=== PATIENT | female | born 1985 | race Caucasian/White ===

== ENCOUNTER 2016-12-06 20:31 | Emergency (ER) | payer OTHER ==
[~2016-12-06] VITALS: Ht 167.6 cm; Wt 62.2 kg
[~2016-12-06 20:31] MED LIST: CIPRO500 MG PO; METHADONE HCL40 MG PO; METHADONE5 MG PO; NOHOMEMEDS; VYVANSE10 MG PO; VYVANSE50 MG PO
[2016-12-06] MEDS ORDERED: CLINDAMYCIN HC300 MG PO (22:10)
[2016-12-06 22:19] VITALS: BP 124/74
== END 2016-12-06 22:19 | disposition home or self-care (01) ==
LOC: EME 20:31 → EXP 20:31
DX: F11.10 Opioid abuse, uncomplicated (principal); S31.134A Puncture wound of abdominal wall without foreign body, left lower quadrant without penetration into peritoneal cavity, initial encounter; X58.XXXA Exposure to other specified factors, initial encounter; R05 Cough; F33.2 Major depressive disorder, recurrent severe without psychotic features; F41.9 Anxiety disorder, unspecified; F17.200 Nicotine dependence, unspecified, uncomplicated
CPT/HCPCS: 72170; 90839; 99281; 99283

== ENCOUNTER 2017-01-09 07:24 | Emergency (ER) | payer OTHER ==
[~2017-01-09] VITALS: Ht 167.6 cm; Wt 62.0 kg
[~2017-01-09 07:24] MED LIST changes: +CLINDAMYCIN HC300 MG PO
[2017-01-09] MEDS ORDERED: METHADONE10 MG PO (07:46)
[2017-01-09 08:43] LABS: MCH 30.1 PG (29.0-34.0); MCHC 33.3 G/DL (30.0-36.0); MCV 90.2 FL (83-99); MEAN PLAT.VOLUME 10.4 uM^3 (9.5-12.4); PLATELET COUNT 223 K/uL (156-360); RBC DIS.WIDTH-CV 12.7 % (11.8-14.6); RBC DIS.WIDTH-SD 40.9 % (39-53); RED BLOOD COUNT 3.66 M/uL (3.80-5.20); WHITE BLOOD COUNT 11.3 K/uL (4.1-10.2)
[2017-01-09 08:44] LABS: EOSINOPHIL (%) 0.7 % (0-5); EOSINOPHIL COUNT 0.1 K/uL (0-0.3); IMMATURE GRANULOCYTE (%) 0.2 % (0.0-0.7); IMMATURE GRANULOCYTE COUNT 0.2 K/uL; LYMPHOCYTE COUNT 1.6 K/uL (1.0-2.8); MONOCYTE (%) 12.4 % (3-12); MONOCYTE COUNT 1.4 K/uL (0-0.8); NEUTROPHIL (%) 72.7 % (45-76); NEUTROPHIL COUNT 8.2 K/uL (1.8-6.4)
[2017-01-09 08:50] LABS: CHLORIDE 105 mEq/L (99-109); POTASSIUM 3.9 mEq/L (3.7-5.4); SODIUM 140 mEq/L (136-147)
[2017-01-09 08:52] LABS: GLUCOSE 116 mg/dL (70-99)
[2017-01-09 08:53] LABS: ANION GAP 10 MEQ/L (2-14)
[2017-01-09 08:56] LABS: GFR ESTIMATE (CALCULATED) > 59 mL/min/
[2017-01-09 08:57] LABS: UREA NITROGEN (BUN) 15 mg/dL (9-23)
[2017-01-09 09:19] LABS: QUANTITATIVE HCG < 4.0 MIU/ML
[2017-01-09] MEDS ORDERED: DAILY VITE1 EAC1 PO (13:29)
[2017-01-09] MEDS ORDERED: MOTRIN800 MG PO (13:29)
[2017-01-09 15:20] LABS: INTER. NORMALIZED RATIO 0.9; PROTHROMBIN TIME 9.6 (9.2-11.2); PTT 32.2 (25-32)
[2017-01-09 16:34] VITALS: BP 99/60
== END 2017-01-09 16:12 | disposition short-term general hospital (02) ==
LOC: EME 07:24
PROVIDERS: Emergency Medicine; Physician Assistant Medical
DX: I82.422 Acute embolism and thrombosis of left iliac vein (principal); I82.412 Acute embolism and thrombosis of left femoral vein; L03.116 Cellulitis of left lower limb; M79.89 Other specified soft tissue disorders; F19.10 Other psychoactive substance abuse, uncomplicated; B19.20 Unspecified viral hepatitis C without hepatic coma
CPT/HCPCS: 72193; 73701; 80048; 84702; 85025; 85610; 85730; 87040; 87077; 87186; 87801; 93970; 99281; 99285; J3370; J7030

== ENCOUNTER 2017-04-05 02:18 | Emergency (ER) | payer OTHER ==
[~2017-04-05] VITALS: Ht 167.6 cm; Wt 60.5 kg
[~2017-04-05 02:18] MED LIST changes: +DAILY VITE1 EAC1 PO; +METHADONE10 MG PO; +MOTRIN800 MG PO
[2017-04-05] MEDS ORDERED: XARELTO20 MG PO (03:22)
[2017-04-05 03:31] VITALS: BP 123/85
== END 2017-04-05 03:46 | disposition home or self-care (01) ==
LOC: EME 02:18
DX: I82.402 Acute embolism and thrombosis of unspecified deep veins of left lower extremity (principal); F11.20 Opioid dependence, uncomplicated; Z76.0 Encounter for issue of repeat prescription; Z91.040 Latex allergy status; Z88.8 Allergy status to other drugs, medicaments and biological substances
CPT/HCPCS: 99281; 99284

== ENCOUNTER 2017-12-07 10:06 | Emergency (ER) | payer OTHER ==
[~2017-12-07] VITALS: Ht 167.6 cm; Wt 71.2 kg
[~2017-12-07 10:06] MED LIST changes: +XARELTO20 MG PO
[2017-12-07 15:22] LABS: HEMATOCRIT 38.3 % (36.0-46.0); HEMOGLOBIN 12.7 G/DL (11.9-15.5); MCH 29.7 PG (29.0-34.0); MCHC 33.2 G/DL (30.0-36.0); MCV 89.5 FL (83-99); PLATELET COUNT 287 K/uL (156-360); RBC DIS.WIDTH-CV 13.6 % (11.8-14.6); RBC DIS.WIDTH-SD 44.3 % (39-53); RED BLOOD COUNT 4.28 M/uL (3.80-5.20); WHITE BLOOD COUNT 13.4 K/uL (4.1-10.2)
[2017-12-07 15:33] LABS: CHLORIDE 104 mEq/L (99-109); POTASSIUM 4.4 mEq/L (3.7-5.4); SODIUM 139 mEq/L (136-147)
[2017-12-07 15:34] LABS: GLUCOSE 79 mg/dL (70-99)
[2017-12-07 15:38] LABS: CREATININE 0.8 mg/dL (0.6-1.3); GFR ESTIMATE (CALCULATED) > 59 mL/min/
[2017-12-07 15:39] LABS: UREA NITROGEN (BUN) 10 mg/dL (9-23)
[2017-12-07] MEDS ORDERED: MOTRIN600 MG PO (16:07)
[2017-12-07] MEDS ORDERED: BACTRIM,SEPT1 TABLET PO (16:07)
[2017-12-07 16:35] VITALS: BP 136/74
== END 2017-12-07 16:36 | disposition left against medical advice (07) ==
LOC: EME 10:06
PROVIDERS: Physician Assistant
PROC: 0H9JXZZ Drainage of Left Upper Leg Skin, External Approach (ICD-10-PCS; principal; 2017-12-07)
DX: L02.416 Cutaneous abscess of left lower limb (principal); F14.10 Cocaine abuse, uncomplicated; F11.10 Opioid abuse, uncomplicated; Z86.718 Personal history of other venous thrombosis and embolism; Z79.01 Long term (current) use of anticoagulants; F17.200 Nicotine dependence, unspecified, uncomplicated
CPT/HCPCS: 73552; 80048; 83605; 85027; 87040; 87070; 87075; 87077; 87147; 87186; 87205; 93971; 99281; 99283; J1885

== ENCOUNTER 2018-03-16 19:42 | Emergency (ER) | payer OTHER ==
[~2018-03-16] VITALS: Ht 167.6 cm; Wt 71.7 kg
[~2018-03-16 19:42] MED LIST changes: +BACTRIM,SEPT1 TABLET PO; -METHADONE10 MG PO; +METHADONE10 MG/1 M1 PO; +MOTRIN600 MG PO
[2018-03-16 20:28] LABS: HEMATOCRIT 38.2 % (36.0-46.0); HEMOGLOBIN 12.9 G/DL (11.9-15.5); MCH 30.6 PG (29.0-34.0); MCHC 33.8 G/DL (30.0-36.0); MCV 90.7 FL (83-99); PLATELET COUNT 188 K/uL (156-360); RBC DIS.WIDTH-CV 13.2 % (11.8-14.6); RBC DIS.WIDTH-SD 44.3 % (39-53); RED BLOOD COUNT 4.21 M/uL (3.80-5.20); WHITE BLOOD COUNT 13.7 K/uL (4.1-10.2)
[2018-03-16 20:32] LABS: INTER. NORMALIZED RATIO 1.9
[2018-03-16 20:34] LABS: PTT 47.1 SEC (25-37)
[2018-03-16 20:35] LABS: ALBUMIN 4.3 g/dL (3.2-4.8); CHLORIDE 103 mEq/L (99-109); POTASSIUM 4.5 mEq/L (3.7-5.4); SODIUM 138 mEq/L (136-147)
[2018-03-16 20:38] LABS: GLUCOSE 109 mg/dL (70-99); TOTAL PROTEIN 8.3 g/dL (6.4-8.3)
[2018-03-16 20:41] LABS: ALKALINE PHOSPHATASE 102 IU/L (3-129); CREATININE 0.8 mg/dL (0.6-1.3); GFR ESTIMATE (CALCULATED) > 59 mL/min/
[2018-03-16 20:42] LABS: UREA NITROGEN (BUN) 10 mg/dL (9-23)
[2018-03-16 20:43] LABS: AST (GOT) 22 IU/L (2-34)
[2018-03-16 20:44] LABS: ALT (GPT) 16 IU/L (3-49)
[2018-03-16 20:53] LABS: QUANTITATIVE HCG < 4.0 MIU/ML
[2018-03-16 23:16] LABS: TROP-I INTERPRETATION NEGATIVE; TROPONIN-I < 0.01 ng/mL (0.0-0.30)
[2018-03-16] MEDS ORDERED: KEFLEX500 MG PO (23:30)
[2018-03-17 00:09] VITALS: BP 117/72
[2018-03-18] MEDS ORDERED: ADULT ASPIRIN81 MG PO (19:56)
== END 2018-03-17 00:21 | disposition home or self-care (01) ==
LOC: EME 19:42
DX: A49.02 Methicillin resistant Staphylococcus aureus infection, unspecified site (principal); R78.81 Bacteremia; L03.116 Cellulitis of left lower limb; F11.99 Opioid use, unspecified with unspecified opioid-induced disorder; G43.909 Migraine, unspecified, not intractable, without status migrainosus; R00.0 Tachycardia, unspecified; Z86.718 Personal history of other venous thrombosis and embolism; F17.200 Nicotine dependence, unspecified, uncomplicated
CPT/HCPCS: 71045; 80053; 83605; 84484; 84702; 85027; 85610; 85730; 87040; 87077; 87186; 87801; 93005; 93971; 99281; 99285; J0696

== ENCOUNTER 2018-03-17 18:31 | Emergency (ER) | payer OTHER ==
[~2018-03-17] VITALS: Ht 167.6 cm; Wt 72.6 kg
[~2018-03-17 18:31] MED LIST changes: +KEFLEX500 MG PO
[2018-03-17 18:42] VITALS: BP 95/66
[2018-03-17 20:20] LABS: BASOPHIL (%) 0.2 % (0-1); EOSINOPHIL (%) 0.3 % (0-5); EOSINOPHIL COUNT 0.1 K/uL (0-0.3); IMMATURE GRANULOCYTE (%) 0.3 % (0.0-0.7); LYMPHOCYTE (%) 7.4 % (15-42); LYMPHOCYTE COUNT 1.3 K/uL (1.0-2.8); MCH 30.5 PG (29.0-34.0); MCHC 34.1 G/DL (30.0-36.0); MCV 89.6 FL (83-99); MONOCYTE (%) 9.4 % (3-12); MONOCYTE COUNT 1.6 K/uL (0-0.8); NEUTROPHIL (%) 82.4 % (45-76); NEUTROPHIL COUNT 14.2 K/uL (1.8-6.4); RBC DIS.WIDTH-CV 13.1 % (11.8-14.6); RBC DIS.WIDTH-SD 43.2 % (39-53); RED BLOOD COUNT 3.57 M/uL (3.80-5.20); WHITE BLOOD COUNT 17.3 K/uL (4.1-10.2)
[2018-03-17 20:21] LABS: HEMOGLOBIN 10.9 G/DL (11.9-15.5); PLATELET COUNT 246 K/uL (156-360)
[2018-03-17 20:33] LABS: CHLORIDE 101 mEq/L (99-109); POTASSIUM 4.1 mEq/L (3.7-5.4); SODIUM 136 mEq/L (136-147)
[2018-03-17 20:34] LABS: GLUCOSE 110 mg/dL (70-99)
[2018-03-17 20:38] LABS: GFR ESTIMATE (CALCULATED) > 59 mL/min/
[2018-03-17 20:39] LABS: UREA NITROGEN (BUN) 11 mg/dL (9-23)
[2018-03-18] MEDS ORDERED: ADULT ASPIRIN81 MG PO (19:56)
== END 2018-03-17 21:04 | disposition left against medical advice (07) ==
LOC: EME 18:31
DX: R79.9 Abnormal finding of blood chemistry, unspecified (principal); Z53.21 Procedure and treatment not carried out due to patient leaving prior to being seen by health care provider
CPT/HCPCS: 71046; 80048; 81003; 83605; 85025

== ENCOUNTER 2018-03-18 15:36 | Inpatient (IN) | payer OTHER ==
[~2018-03-18] VITALS: Ht 167.6 cm; Wt 77.3 kg
[2018-03-18 19:52] LABS: BASOPHIL (%) 0.2 % (0-1); EOSINOPHIL (%) 0.4 % (0-5); EOSINOPHIL COUNT 0.1 K/uL (0-0.3); HEMATOCRIT 31.7 % (36.0-46.0); HEMOGLOBIN 10.6 G/DL (11.9-15.5); IMMATURE GRANULOCYTE (%) 0.6 % (0.0-0.7); LYMPHOCYTE (%) 10.6 % (15-42); LYMPHOCYTE COUNT 1.7 K/uL (1.0-2.8); MCH 30.4 PG (29.0-34.0); MCHC 33.4 G/DL (30.0-36.0); MCV 90.8 FL (83-99); MONOCYTE (%) 8.5 % (3-12); MONOCYTE COUNT 1.4 K/uL (0-0.8); NEUTROPHIL (%) 79.7 % (45-76); NEUTROPHIL COUNT 12.8 K/uL (1.8-6.4); PLATELET COUNT 226 K/uL (156-360); RBC DIS.WIDTH-CV 13.3 % (11.8-14.6); RBC DIS.WIDTH-SD 43.9 % (39-53); RED BLOOD COUNT 3.49 M/uL (3.80-5.20); WHITE BLOOD COUNT 16.1 K/uL (4.1-10.2)
[2018-03-18] MEDS ORDERED: ADULT ASPIRIN81 MG PO (19:56)
[2018-03-18 19:59] LABS: ALBUMIN 3.7 g/dL (3.2-4.8)
[2018-03-18 20:00] LABS: CHLORIDE 101 mEq/L (99-109); POTASSIUM 3.7 mEq/L (3.7-5.4); SODIUM 137 mEq/L (136-147)
[2018-03-18 20:02] LABS: TOTAL PROTEIN 7.2 g/dL (6.4-8.3)
[2018-03-18 20:05] LABS: ALKALINE PHOSPHATASE 86 IU/L (3-129)
[2018-03-18 20:06] LABS: GFR ESTIMATE (CALCULATED) > 59 mL/min/
[2018-03-18 20:07] LABS: AST (GOT) 20 IU/L (2-34); UREA NITROGEN (BUN) 13 mg/dL (9-23)
[2018-03-18 20:08] LABS: ALT (GPT) 15 IU/L (3-49); GLUCOSE 80 mg/dL (70-99); TOTAL BILIRUBIN 0.3 mg/dL (0.0-1.0)
[2018-03-18 20:14] LABS: QUANTITATIVE HCG < 4.0 MIU/ML
[2018-03-19 00:23] VITALS: BP 99/51
[2018-03-19 07:07] VITALS: BP 105/58
[2018-03-19 07:30] LABS: HEMATOCRIT 31.1 % (36.0-46.0); MCH 29.9 PG (29.0-34.0); MCHC 32.2 G/DL (30.0-36.0); MCV 93.1 FL (83-99); RBC DIS.WIDTH-CV 13.6 % (11.8-14.6); RBC DIS.WIDTH-SD 46.5 % (39-53); RED BLOOD COUNT 3.34 M/uL (3.80-5.20); WHITE BLOOD COUNT 12.1 K/uL (4.1-10.2)
[2018-03-19 07:45] LABS: CHLORIDE 108 MEQ/L (99-109); SODIUM 138 MEQ/L (136-147)
[2018-03-19 07:47] LABS: PLAT.SUFFICIENCY DECREASED; PLATELET COUNT 129 K/uL (156-360)
[2018-03-19 07:51] LABS: CREATININE 0.6 MG/DL (0.6-1.3); GFR ESTIMATE (CALCULATED) > 59 mL/min/; UREA NITROGEN (BUN) 10 mg/dL (9-23)
[2018-03-19 07:52] LABS: GLUCOSE 101 mg/dL (70-99)
[2018-03-20] VITALS: BP 119/69
[2018-03-20 07:45] VITALS: BP 102/63
[2018-03-20 07:49] LABS: HEMATOCRIT 30.9 % (36.0-46.0); HEMOGLOBIN 10.2 G/DL (11.9-15.5); MCH 29.6 PG (29.0-34.0); MCV 89.6 FL (83-99); RBC DIS.WIDTH-CV 13.8 % (11.8-14.6); RBC DIS.WIDTH-SD 45.4 % (39-53); RED BLOOD COUNT 3.45 M/uL (3.80-5.20); WHITE BLOOD COUNT 12.7 K/uL (4.1-10.2)
[2018-03-20 08:28] LABS: CHLORIDE 106 MEQ/L (99-109); CREATININE 0.6 MG/DL (0.6-1.3); GFR ESTIMATE (CALCULATED) > 59 mL/min/; GLUCOSE 87 mg/dL (70-99); POTASSIUM 3.7 MEQ/L (3.7-5.4); SODIUM 139 MEQ/L (136-147); UREA NITROGEN (BUN) 5 mg/dL (9-23)
[2018-03-20 08:29] LABS: PLAT.SUFFICIENCY ADEQUATE
[2018-03-20 08:35] LABS: PLATELET COUNT 210 K/uL (156-360)
[2018-03-20 16:53] VITALS: BP 107/59
[2018-03-21 00:02] VITALS: BP 98/57
[2018-03-21 08:05] VITALS: BP 116/67
[2018-03-21 10:25] LABS: HEMATOCRIT 30.9 % (36.0-46.0); HEMOGLOBIN 9.9 G/DL (11.9-15.5); MCH 29.2 PG (29.0-34.0); MCV 91.2 FL (83-99); RBC DIS.WIDTH-CV 13.7 % (11.8-14.6); RBC DIS.WIDTH-SD 46.7 % (39-53); RED BLOOD COUNT 3.39 M/uL (3.80-5.20); WHITE BLOOD COUNT 10.4 K/uL (4.1-10.2)
[2018-03-21 10:35] LABS: PLATELET COUNT 303 K/uL (156-360)
[2018-03-21 11:38] LABS: CHLORIDE 106 MEQ/L (99-109); CREATININE 0.7 MG/DL (0.6-1.3); GFR ESTIMATE (CALCULATED) > 59 mL/min/; GLUCOSE 107 mg/dL (70-99); MAGNESIUM 1.9 mg/dl (1.3-2.7); POTASSIUM 4.2 MEQ/L (3.7-5.4); SODIUM 140 MEQ/L (136-147); UREA NITROGEN (BUN) 7 mg/dL (9-23)
[2018-03-21 16:28] VITALS: BP 121/77
[2018-03-22 00:33] VITALS: BP 106/55
[2018-03-22 04:04] VITALS: BP 163/81
[2018-03-22 07:55] VITALS: BP 110/60
[2018-03-22 16:20] VITALS: BP 128/72
[2018-03-22 23:50] VITALS: BP 104/62
[2018-03-23 06:36] LABS: CREATININE 0.7 MG/DL (0.6-1.3); GFR ESTIMATE (CALCULATED) > 59 mL/min/
[2018-03-23 07:32] VITALS: BP 105/62
[2018-03-23 09:40] LABS: CHLORIDE 104 MEQ/L (99-109); GLUCOSE 92 mg/dL (70-99); POTASSIUM 4.1 MEQ/L (3.7-5.4); SODIUM 141 MEQ/L (136-147); UREA NITROGEN (BUN) 11 mg/dL (9-23)
[2018-03-23] MEDS ORDERED: ZYVOX600 MG PO (12:26)
[2018-03-23 12:51] LABS: BASOPHIL (%) 0.6 % (0-1); BASOPHIL COUNT 0.1 K/uL (0-0.1); EOSINOPHIL (%) 1.5 % (0-5); EOSINOPHIL COUNT 0.1 K/uL (0-0.3); HEMOGLOBIN 9.6 G/DL (11.9-15.5); IMMATURE GRANULOCYTE (%) 1.7 % (0.0-0.7); LYMPHOCYTE (%) 24.9 % (15-42); LYMPHOCYTE COUNT 2.2 K/uL (1.0-2.8); MCH 29.4 PG (29.0-34.0); MCV 91.7 FL (83-99); MONOCYTE (%) 11.2 % (3-12); NEUTROPHIL (%) 60.1 % (45-76); NEUTROPHIL COUNT 5.2 K/uL (1.8-6.4); PLATELET COUNT 328 K/uL (156-360); RBC DIS.WIDTH-CV 13.8 % (11.8-14.6); RBC DIS.WIDTH-SD 47.2 % (39-53); RED BLOOD COUNT 3.27 M/uL (3.80-5.20); WHITE BLOOD COUNT 8.7 K/uL (4.1-10.2)
== END 2018-03-23 15:20 | disposition left against medical advice (07) | DRG 872 ==
LOC: EME 15:36 → ENRESERV 22:16 → 5SOUTH 22:16 → EDOF 22:16 → ENRESERV 22:56 → 5SOUTH 23:51
PROVIDERS: Emergency Medicine; Hospitalist; Internal Medicine; Physician Assistant Medical
PROC: B245ZZ4 Ultrasonography of Left Heart, Transesophageal (ICD-10-PCS; principal; 2018-03-22)
DX: R78.81 Bacteremia (principal); B95.62 Methicillin resistant Staphylococcus aureus infection as the cause of diseases classified elsewhere; L03.116 Cellulitis of left lower limb; B18.2 Chronic viral hepatitis C; F11.20 Opioid dependence, uncomplicated; Z91.19 Patient's noncompliance with other medical treatment and regimen; Z86.14 Personal history of Methicillin resistant Staphylococcus aureus infection; D69.6 Thrombocytopenia, unspecified; F12.10 Cannabis abuse, uncomplicated; F14.10 Cocaine abuse, uncomplicated; F17.210 Nicotine dependence, cigarettes, uncomplicated; F32.9 Major depressive disorder, single episode, unspecified; F90.9 Attention-deficit hyperactivity disorder, unspecified type; G43.909 Migraine, unspecified, not intractable, without status migrainosus; Z79.01 Long term (current) use of anticoagulants; Z82.61 Family history of arthritis; Z86.718 Personal history of other venous thrombosis and embolism
CPT/HCPCS: 80048; 80053; 80202; 82565; 83605; 83735; 84702; 85025; 85027; 87040; 87077; 87186; 87801; 93306; 93312; 99281; 99285; J1644; J2250; J3370; J7030

== ENCOUNTER 2018-04-23 23:57 | Inpatient (IN) | payer OTHER ==
[~2018-04-23] VITALS: Ht 167.6 cm; Wt 74.2 kg
[~2018-04-23 23:57] MED LIST changes: +ADULT ASPIRIN81 MG PO; +ZYVOX600 MG PO
[2018-04-24 01:29] LABS: HEMATOCRIT 30.5 % (36.0-46.0); HEMOGLOBIN 10.2 G/DL (11.9-15.5); MCH 30.3 PG (29.0-34.0); MCHC 33.4 G/DL (30.0-36.0); MCV 90.5 FL (83-99); PLATELET COUNT 361 K/uL (156-360); RBC DIS.WIDTH-CV 14.8 % (11.8-14.6); RBC DIS.WIDTH-SD 49.1 % (39-53); RED BLOOD COUNT 3.37 M/uL (3.80-5.20); WHITE BLOOD COUNT 17.6 K/uL (4.1-10.2)
[2018-04-24 01:39] LABS: ALBUMIN 3.9 g/dL (3.2-4.8)
[2018-04-24 01:40] LABS: CHLORIDE 100 mEq/L (99-109); POTASSIUM 3.8 mEq/L (3.7-5.4); SODIUM 137 mEq/L (136-147)
[2018-04-24 01:42] LABS: GLUCOSE 109 mg/dL (70-99); TOTAL PROTEIN 7.7 g/dL (6.4-8.3)
[2018-04-24 01:43] LABS: ERTH.SED.RATE 94 MM/HR (0-20)
[2018-04-24 01:44] LABS: TOTAL BILIRUBIN 0.6 mg/dL (0.0-1.0)
[2018-04-24 01:45] LABS: ALKALINE PHOSPHATASE 76 IU/L (3-129)
[2018-04-24 01:46] LABS: CREATININE 1.2 mg/dL (0.6-1.3); GFR ESTIMATE (CALCULATED) 55 mL/min/
[2018-04-24 01:47] LABS: AST (GOT) 39 IU/L (2-34); UREA NITROGEN (BUN) 13 mg/dL (9-23)
[2018-04-24 01:49] LABS: ALT (GPT) 41 IU/L (3-49); LIPASE 11 U/L (1.0-51.0)
[2018-04-24 01:55] LABS: TROP-I INTERPRETATION NEGATIVE; TROPONIN-I 0.01 ng/mL (0.0-0.30)
[2018-04-24 02:01] LABS: C-REACTIVE PROTEIN 181.2 MG/L (0-10)
[2018-04-24 02:50] LABS: APPEARANCE CLOUDY ((CLEAR)); BILIRUBIN NEGATIVE; BLOOD MODERATE; COLOR YELLOW ((YELLOW)); GLUCOSE (STRIP) NEGATIVE; KETONES NEGATIVE; LEUKOCYTES LARGE; NITRITE NEGATIVE; PROTEIN (STRIP) 30; SPECIFIC GRAVITY 1.006 (1.000-1.030); UROBILINOGEN 0.2 MG/DL (0.2-1.0)
[2018-04-24 02:56] LABS: BACTERIA RARE /HPF; EPITHELIAL CELLS 1+ /HPF; MUCUS TRACE /LPF; UCUL ADDED? YES; WHITE BLOOD CELLS TNTC /HPF (0-5)
[2018-04-24 02:59] LABS: AMPHETAMINE NEGATIVE (500 ng/mL); BARBITURATES NEGATIVE (200 ng/mL); BENZODIAZEPINES PRESUMPTIVE POSITIVE (150 ng/mL); BUPRENORPHINE NEGATIVE (10 ng/mL); COCAINE PRESUMPTIVE POSITIVE (150 ng/mL); METHADONE PRESUMPTIVE POSITIVE (200 ng/mL); METHAMPHETAMINE NEGATIVE (500 ng/mL); OPIATES (MORPHINE) PRESUMPTIVE POSITIVE (100 ng/mL); OXYCODONE PRESUMPTIVE POSITIVE (100 ng/mL); PHENCYCLIDINE NEGATIVE (25 ng/mL); PROPOXYPHENE NEGATIVE (300 ng/mL); THC CANNABINOIDS NEGATIVE (50 ng/mL); TRICYCLIC ANTIDEPRESSANTS NEGATIVE (300 ng/mL)
[2018-04-24 03:53] LABS: QUANTITATIVE HCG < 4.0 MIU/ML
[2018-04-24 04:47] LABS: BENZODIAZEPINES, URINE SCREEN Negative (200 ng/mL)
[2018-04-24 06:25] VITALS: BP 123/70
[2018-04-24 07:53] VITALS: BP 125/78
[2018-04-24] MEDS ORDERED: PEPCID20 MG PO (11:00)
[2018-04-24] MEDS ORDERED: NICOTINE PATCH1 EAC2 TD (11:00)
[2018-04-24] MEDS ORDERED: MULTIVITAMIN1 EAC2 PO (11:00)
[2018-04-24 11:44] VITALS: BP 119/73
[2018-04-24 16:02] VITALS: BP 124/80
[2018-04-24 19:28] VITALS: BP 128/73
[2018-04-24 23:17] VITALS: BP 118/68
[2018-04-25 03:43] VITALS: BP 128/70
[2018-04-25 07:44] VITALS: BP 132/75
[2018-04-25 09:26] LABS: HEMATOCRIT 26.3 % (36.0-46.0); HEMOGLOBIN 8.2 G/DL (11.9-15.5); MCHC 31.2 G/DL (30.0-36.0); MCV 92.9 FL (83-99); PLATELET COUNT 280 K/uL (156-360); RBC DIS.WIDTH-CV 14.8 % (11.8-14.6); RBC DIS.WIDTH-SD 50.6 % (39-53); RED BLOOD COUNT 2.83 M/uL (3.80-5.20); WHITE BLOOD COUNT 8.3 K/uL (4.1-10.2)
[2018-04-25 09:49] LABS: ALBUMIN 2.7 G/DL (3.2-4.8); ALKALINE PHOSPHATASE 48 IU/L (3-129); ALT (GPT) 21 IU/L (3-49); AST (GOT) 18 IU/L (2-34); CHLORIDE 108 MEQ/L (99-109); GLUCOSE 91 mg/dL (70-99); POTASSIUM 4.1 MEQ/L (3.7-5.4); SODIUM 140 MEQ/L (136-147); TOTAL BILIRUBIN 0.3 MG/DL (0.0-1.0); TOTAL PROTEIN 5.6 G/DL (6.4-8.3); UREA NITROGEN (BUN) 6 mg/dL (9-23)
[2018-04-25 09:54] LABS: CREATININE 0.6 MG/DL (0.6-1.3); GFR ESTIMATE (CALCULATED) > 59 mL/min/
[2018-04-25 10:52] LABS: SOURCE URINE
[2018-04-25 12:00] VITALS: BP 127/71
[2018-04-25 12:19] LABS: HEPATITIS B SURFACE ANTIGEN Nonreactive; HIV-1/2 AB/AG COMBO Nonreactive
[2018-04-25 15:43] VITALS: BP 122/79; BP 127/74
[2018-04-25 19:45] VITALS: BP 128/71
[2018-04-25 23:30] VITALS: BP 129/64
[2018-04-26 04:56] VITALS: BP 118/59
[2018-04-26 06:47] LABS: HEMATOCRIT 29.7 % (36.0-46.0); HEMOGLOBIN 9.4 G/DL (11.9-15.5); MCH 29.1 PG (29.0-34.0); MCHC 31.6 G/DL (30.0-36.0); PLATELET COUNT 285 K/uL (156-360); RBC DIS.WIDTH-CV 14.6 % (11.8-14.6); RBC DIS.WIDTH-SD 49.4 % (39-53); RED BLOOD COUNT 3.23 M/uL (3.80-5.20); WHITE BLOOD COUNT 9.4 K/uL (4.1-10.2)
[2018-04-26 07:32] LABS: IRON 28 MCG/DL (35-150); TRANSFERRIN (TIBC) 192.8 mg/dL (215-380); TRANSFERRIN SATUR. 15 % (20-55)
[2018-04-26 08:07] LABS: FERRITIN 169 NG/ML (10-291)
[2018-04-26 08:32] LABS: FOLIC ACID (FOLATE) 12.3 NG/ML (5.0-22.0)
[2018-04-26 09:25] VITALS: BP 153/91
[2018-04-26 09:32] LABS: TREPONEMA ANTIBODY POSITIVE (NEGATIVE)
[2018-04-26 11:20] VITALS: BP 150/87
[2018-04-26 13:49] LABS: CHLAMYDIA TRACHOMATIS NEGATIVE; NEISSERIA GONORRHOEAE NEGATIVE
[2018-04-26 16:21] VITALS: BP 134/76
[2018-04-26 23:22] VITALS: BP 118/69
[2018-04-27 08:26] VITALS: BP 108/70
[2018-04-27] MEDS ORDERED: FERROUS SULFAT325 MG PO (12:15)
[2018-04-27] MEDS ORDERED: CIPROFLOXACIN500 M1 PO (12:15)
[2018-04-27] MEDS ORDERED: ENDOCET 5-3251 EACH PO (12:20)
[2018-04-27 16:56] LABS: RPR SCREEN Nonreactive (Nonreactive)
[2018-04-28 10:18] LABS: TREPONEMA PALLIDUM PART AGGL Reactive (Nonreactive)
== END 2018-04-27 13:37 | disposition home health service (06) | DRG 872 ==
LOC: EME 23:57 → 3EAST 04-24 04:37 → EDOF 04-24 04:37 → ENRESERV 04-24 04:38 → 3EAST 04-24 06:11
PROVIDERS: Emergency Medicine; Hospitalist; Internal Medicine Infectious Disease; Physician Assistant
DX: A41.9 Sepsis, unspecified organism (principal); N39.0 Urinary tract infection, site not specified; B96.20 Unspecified Escherichia coli [E. coli] as the cause of diseases classified elsewhere; L30.9 Dermatitis, unspecified; F11.20 Opioid dependence, uncomplicated; F90.9 Attention-deficit hyperactivity disorder, unspecified type; F41.9 Anxiety disorder, unspecified; G43.909 Migraine, unspecified, not intractable, without status migrainosus; F32.9 Major depressive disorder, single episode, unspecified; F14.10 Cocaine abuse, uncomplicated; D50.9 Iron deficiency anemia, unspecified; G89.29 Other chronic pain; F17.210 Nicotine dependence, cigarettes, uncomplicated; S92.002A Unspecified fracture of left calcaneus, initial encounter for closed fracture; S92.001A Unspecified fracture of right calcaneus, initial encounter for closed fracture; W17.89XA Other fall from one level to another, initial encounter; B18.2 Chronic viral hepatitis C; Z86.718 Personal history of other venous thrombosis and embolism; Z91.19 Patient's noncompliance with other medical treatment and regimen; Z79.82 Long term (current) use of aspirin; Z86.14 Personal history of Methicillin resistant Staphylococcus aureus infection
CPT/HCPCS: 71045; 73630; 80053; 81003; 82306; 82607; 82728; 82746; 83540; 83605; 83690; 84466; 84484; 84702; 84999; 85027; 85651; 86140; 86592 90; 86780; 86780 90; 87040; 87086; 87340; 87389; 87491; 87591; 93005; 93971; 94010; 99281; 99285; J0696; J1650; J3370; J7030